=== PATIENT | male | born 1965 | race Caucasian/White ===

== ENCOUNTER 2016-05-04 11:47 | Inpatient (IN) | payer MEDICAID ==
[~2016-05-04] VITALS: Ht 170.2 cm; Wt 58.1 kg
[2016-05-04] VITALS (7 sets, daily range): BP systolic 102–142; BP diastolic 62–91
[~2016-05-04 11:47] MED LIST: ARIP15TA3 PO; MIRT15 PO; NO MEDS; TRAZ-144 PO
[2016-05-04] MEDS ORDERED: GuaiFENesin/D-METHORPHAN [SUGAR-FREE] 200-20MG/10 ML SYRUP UDCUP PO PRN (13:45)
[2016-05-04] MEDS ORDERED: CYANOCOBALAMIN 1,000 MCG/ML VIAL IM ONE (13:45)
[2016-05-04] MEDS ORDERED: LOPERAMIDE HCL 2 MG CAPSULE PO PRN (13:45)
[2016-05-04] MEDS ORDERED: HydrOXYzine PAMOATE 50 MG CAPSULE PO PRN (13:45)
[2016-05-04] MEDS ORDERED: LORazepam 2 MG TABLET PO PRN (13:45)
[2016-05-04] MEDS: MULTIVITAMINS WITH MINERALS, THERAPEUTIC TABLET PO SCH (14:29)
[2016-05-04] MEDS: THIAMINE HCL 100 MG TABLET PO SCH (16:09)
[2016-05-04] MEDS: TraZODone HCL 50 MG TABLET PO SCH (20:24)
[2016-05-04] MEDS: MIRTAZAPINE 15 MG TABLET PO SCH (20:24)
[2016-05-05] VITALS (7 sets, daily range): BP systolic 104–114; BP diastolic 60–71
[2016-05-05] MEDS ORDERED: LORazepam 2 MG TABLET PO PRN (07:00)
[2016-05-05] MEDS: ARIPiprazole 15 MG TABLET PO SCH (08:58)
[2016-05-05] MEDS: LORazepam 2 MG TABLET PO SCH ×4 (09:00→20:31)
[2016-05-05] MEDS: THIAMINE HCL 100 MG TABLET PO SCH ×2 (09:00→17:00)
[2016-05-05] MEDS: NICOTINE 21 MG/24 HOUR PATCH TD SCH (09:00)
[2016-05-05] MEDS: MULTIVITAMINS WITH MINERALS, THERAPEUTIC TABLET PO SCH (09:00)
[2016-05-05] MEDS: FOLIC ACID 1 MG TABLET PO SCH (09:00)
[2016-05-05] MEDS: TraZODone HCL 50 MG TABLET PO SCH (20:31)
[2016-05-05] MEDS: MIRTAZAPINE 15 MG TABLET PO SCH (20:31)
[2016-05-06 06:36] VITALS: BP 122/78
[2016-05-06 06:37] VITALS: BP 122/78
[2016-05-06 08:00] LABS: BASOPHILS # (AUTO) 0.04 K/uL (0.00-0.20); BASOPHILS % (AUTO) 0.5 % (0.0-2.0); EOSINOPHILS # (AUTO) 0.14 K/uL (0.00-0.70); EOSINOPHILS % (AUTO) 1.79 % (1.0-6.0); HEMATOCRIT 46.1 % (41-53); HEMOGLOBIN 15.2 g/dL (13.5-17.5); LYMPHOCYTES # (AUTO) 2.4 K/uL (1.0-4.8); LYMPHOCYTES % (AUTO) 29.4 % (22.0-44.0); MEAN CORPUSCULAR HEMOGLOBIN 30.8 pg (26.0-34.0); MEAN CORPUSCULAR HGB CONC 32.9 G/dL (31.0-37.0); MEAN CORPUSCULAR VOLUME 94 fL (80-100); MONOCYTES # (AUTO) 0.4 K/uL (0.1-1.0); MONOCYTES % (AUTO) 4.9 % (2.0-9.0); NEUTROPHILS # (AUTO) 5.1 K/uL (1.8-7.7); NEUTROPHILS % (AUTO) 63.4 % (40.0-70.0); PLATELET COUNT (AUTO) 436 K/uL (150-450); RED BLOOD CELL COUNT(AUTO) 4.92 MIL/uL (4.50-5.90); RED CELL DISTRIBUTION WIDTH 15.2 % (11.5-14.5); WHITE BLOOD COUNT (AUTO) 8.1 K/uL (4.5-11.0)
[2016-05-06 08:03] VITALS: BP 117/77
[2016-05-06 08:31] LABS: ALANINE AMINOTRANSFERASE 34 U/L (12-78); ALBUMIN 3.4 g/dL (3.4-5.0); ANION GAP 9 mmol/L (8-16); ASPARTATE AMINOTRANSFERASE 22 U/L (15-37); BILIRUBIN,TOTAL 0.3 mg/dL (0.1-1.0); CALCIUM, TOTAL 8.9 mg/dL (8.8-10.5); CARBON DIOXIDE 27 mmol/L (22-29); CHLORIDE 103 mmol/L (98-107); CHOL/HDL RATIO 4.1 (4.2-7.3); CREATININE 0.91 mg/dL (0.60-1.30); GLOMERULAR FILTR. RATE CALC > 60 mL/min (>60); POTASSIUM 4.2 mmol/L (3.5-5.1); SODIUM SERUM 139 mmol/L (136-145); THYROID STIMULATING HORMONE 2.58 uIU/mL (0.36-3.74); TOTAL PROTEIN, SERUM 7.2 g/dL (6.4-8.2); UREA NITROGEN, BLOOD 13 mg/dL (7-18)
[2016-05-06] MEDS: MULTIVITAMINS WITH MINERALS, THERAPEUTIC TABLET PO SCH (09:00)
[2016-05-06] MEDS: THIAMINE HCL 100 MG TABLET PO SCH ×2 (09:00→16:15)
[2016-05-06] MEDS: LORazepam 2 MG TABLET PO SCH ×4 (09:00→20:57)
[2016-05-06] MEDS: FOLIC ACID 1 MG TABLET PO SCH (09:00)
[2016-05-06 09:24] VITALS: BP 117/77
[2016-05-06] MEDS: ARIPiprazole 15 MG TABLET PO SCH (09:30)
[2016-05-06] MEDS: NICOTINE 21 MG/24 HOUR PATCH TD SCH (09:30)
[2016-05-06 16:00] VITALS: BP 123/77
[2016-05-06] MEDS: TraZODone HCL 50 MG TABLET PO SCH (20:57)
[2016-05-06] MEDS: MIRTAZAPINE 15 MG TABLET PO SCH (20:57)
[2016-05-07 06:46] VITALS: BP 122/67
[2016-05-07] MEDS ORDERED: LORazepam 1 MG TABLET PO PRN (07:00)
[2016-05-07 08:03] VITALS: BP 109/65
[2016-05-07] MEDS: FOLIC ACID 1 MG TABLET PO SCH (10:02)
[2016-05-07] MEDS: LORazepam 1 MG TABLET PO SCH ×4 (10:03→20:26)
[2016-05-07] MEDS: MULTIVITAMINS WITH MINERALS, THERAPEUTIC TABLET PO SCH (10:03)
[2016-05-07] MEDS: THIAMINE HCL 100 MG TABLET PO SCH ×2 (10:03→17:06)
[2016-05-07] MEDS: ARIPiprazole 15 MG TABLET PO SCH (10:03)
[2016-05-07] MEDS: NICOTINE 21 MG/24 HOUR PATCH TD SCH (10:04)
[2016-05-07 10:10] VITALS: BP 109/65
[2016-05-07 16:08] VITALS: BP 110/67
[2016-05-07] MEDS: MIRTAZAPINE 15 MG TABLET PO SCH (20:26)
[2016-05-07] MEDS: TraZODone HCL 50 MG TABLET PO SCH (20:26)
[2016-05-08 06:46] VITALS: BP 106/85
[2016-05-08] MEDS ORDERED: LORazepam 1 MG TABLET PO PRN (07:00)
[2016-05-08 08:00] VITALS: BP 126/85
[2016-05-08 08:03] VITALS: BP 126/85
[2016-05-08 09:04] LABS: CHOL/HDL RATIO 3.6 (4.2-7.3); MAGNESIUM 2.3 mg/dL (1.80-2.40); THYROID STIMULATING HORMONE 4.02 uIU/mL (0.36-3.74)
[2016-05-08 09:05] LABS: HEMOGLOBIN A1C 5.5 % (4.5-6.2)
[2016-05-08] MEDS: ARIPiprazole 15 MG TABLET PO SCH (09:14)
[2016-05-08] MEDS: MULTIVITAMINS WITH MINERALS, THERAPEUTIC TABLET PO SCH (09:14)
[2016-05-08] MEDS: FOLIC ACID 1 MG TABLET PO SCH (09:14)
[2016-05-08] MEDS: NICOTINE 21 MG/24 HOUR PATCH TD SCH (09:15)
[2016-05-08] MEDS: THIAMINE HCL 100 MG TABLET PO SCH (09:15)
[2016-05-09 12:10] LABS: HEPATITIS Bs ANTIGEN SCREEN P Negative (Negative); HEPATITIS C AB SCREEN 0.1 s/co ratio (0.0-0.9)
== END 2016-05-08 16:25 | disposition home or self-care (01) | DRG 750 ==
LOC: B3A 13:27 → EDSTATUS 13:52
DX: F25.1 Schizoaffective disorder, depressive type (principal); R45.851 Suicidal ideations; E78.5 Hyperlipidemia, unspecified; F17.200 Nicotine dependence, unspecified, uncomplicated; F12.90 Cannabis use, unspecified, uncomplicated; F10.10 Alcohol abuse, uncomplicated; Z98.890 Other specified postprocedural states; Z87.81 Personal history of (healed) traumatic fracture
CPT/HCPCS: 80074; 82306; 82607; 82746; 83036; 83735; 84439; 84443; 86592; G0480; J3420

== ENCOUNTER 2016-08-17 07:37 | Inpatient (IN) | payer MEDICAID ==
[~2016-08-17] VITALS: Ht 170.2 cm; Wt 55.3 kg
[~2016-08-17 07:37] MED LIST changes: -NO MEDS
[2016-08-17 09:35] VITALS: BP 111/75
[2016-08-17] MEDS ORDERED: ZOLPIDEM TARTRATE 10 MG TABLET PO PRN (09:45)
[2016-08-17] MEDS ORDERED: HALOPERIDOL 5 MG TABLET PO PRN (09:45)
[2016-08-17] MEDS ORDERED: LORazepam 2 MG TABLET PO PRN (09:45)
[2016-08-17 10:37] VITALS: BP 118/74
[2016-08-17] MEDS: HYDROCORTISONE 1% 30 GM OINTMENT TP SCH (16:06)
[2016-08-17] MEDS: SIMVASTATIN 20 MG TABLET PO SCH (20:53)
[2016-08-18 08:05] LABS: APPEARANCE,URINE TURBID (CLEAR); GLUCOSE, URINE (UA) NEGATIVE (NEGATIVE); KETONES,URINE 40 mg/dL (NEGATIVE); LEUKOCYTE ESTERASE ,URINE SMALL (NEGATIVE); OCCULT BLOOD,URINE NEGATIVE (NEGATIVE); PH,URINE 5.5 (5.0-8.0); PROTEIN,URINE NEGATIVE (NEGATIVE)
[2016-08-18 08:07] LABS: ADD UA MICROSCOPIC YES
[2016-08-18] MEDS: HYDROCORTISONE 1% 30 GM OINTMENT TP SCH ×2 (08:12→16:26)
[2016-08-18] MEDS: NICOTINE 21 MG/24 HOUR PATCH TD SCH (08:12)
[2016-08-18 08:16] LABS: AMORPHOUS SEDIMENT,UR Many /LPF (None Seen); RBC,URINE 0-2 /HPF (0-2); SQUAMOUS EPITHELIAL CELL,UR Rare /LPF (None Seen); WBC,URINE 0-2 /HPF (0-5)
[2016-08-18 08:32] VITALS: BP 100/61
[2016-08-18] MEDS: ARIPiprazole 15 MG TABLET PO SCH (12:26)
[2016-08-18] MEDS: MIRTAZAPINE 15 MG TABLET PO SCH (20:54)
[2016-08-18] MEDS: SIMVASTATIN 20 MG TABLET PO SCH (20:54)
[2016-08-18] MEDS: TraZODone HCL 50 MG TABLET PO SCH (20:54)
[2016-08-19 06:16] VITALS: BP 103/65
[2016-08-19 08:19] VITALS: BP 100/62
[2016-08-19 08:24] LABS: BASOPHILS % (AUTO) 0.4 % (0.0-2.0); EOSINOPHILS % (AUTO) 2.3 % (1.0-6.0); HEMOGLOBIN 15.1 g/dL (13.5-17.5); LYMPHOCYTES # (AUTO) 2.2 K/uL (1.0-4.8); MEAN CORPUSCULAR HEMOGLOBIN 30.3 pg (26.0-34.0); MEAN CORPUSCULAR HGB CONC 32.1 G/dL (31.0-37.0); MEAN CORPUSCULAR VOLUME 95 fL (80-100); MONOCYTES # (AUTO) 0.4 K/uL (0.1-1.0); NEUTROPHILS # (AUTO) 4.5 K/uL (1.8-7.7); NEUTROPHILS % (AUTO) 61.3 % (40.0-70.0); PLATELET COUNT (AUTO) 364 K/uL (150-450); RED BLOOD CELL COUNT(AUTO) 4.97 MIL/uL (4.50-5.90); RED CELL DISTRIBUTION WIDTH 14.7 % (11.5-14.5); WHITE BLOOD COUNT (AUTO) 7.4 K/uL (4.5-11.0)
[2016-08-19 08:42] LABS: ALANINE AMINOTRANSFERASE 16 U/L (12-78); ALBUMIN 3.3 g/dL (3.4-5.0); ANION GAP 12 mmol/L (8-16); ASPARTATE AMINOTRANSFERASE 18 U/L (15-37); BILIRUBIN,TOTAL 0.4 mg/dL (0.1-1.0); CALCIUM, TOTAL 8.7 mg/dL (8.8-10.5); CARBON DIOXIDE 22 mmol/L (22-29); CHLORIDE 103 mmol/L (98-107); GLOMERULAR FILTR. RATE CALC > 60 mL/min (>60); POTASSIUM 3.7 mmol/L (3.5-5.1); SODIUM SERUM 137 mmol/L (136-145); UREA NITROGEN, BLOOD 15 mg/dL (7-18)
[2016-08-19] MEDS: LEVOFLOXACIN 250 MG TABLET PO SCH (08:59)
[2016-08-19] MEDS: HYDROCORTISONE 1% 30 GM OINTMENT TP SCH ×2 (08:59→17:59)
[2016-08-19] MEDS: NICOTINE 21 MG/24 HOUR PATCH TD SCH (08:59)
[2016-08-19] MEDS: ARIPiprazole 15 MG TABLET PO SCH (08:59)
[2016-08-19 16:00] VITALS: BP 115/78
[2016-08-19] MEDS: MIRTAZAPINE 15 MG TABLET PO SCH (21:28)
[2016-08-19] MEDS: SIMVASTATIN 20 MG TABLET PO SCH (21:28)
[2016-08-19] MEDS: TraZODone HCL 50 MG TABLET PO SCH (21:28)
[2016-08-20 06:43] VITALS: BP 110/75
[2016-08-20 08:27] VITALS: BP 104/63
[2016-08-20] MEDS: ARIPiprazole 15 MG TABLET PO SCH (08:57)
[2016-08-20] MEDS: NICOTINE 21 MG/24 HOUR PATCH TD SCH (09:00)
[2016-08-20] MEDS: LEVOFLOXACIN 250 MG TABLET PO SCH ×2 (09:00→10:47)
[2016-08-20] MEDS: HYDROCORTISONE 1% 30 GM OINTMENT TP SCH ×2 (09:05→17:18)
[2016-08-20 16:18] VITALS: BP 122/70
[2016-08-20] MEDS: SIMVASTATIN 20 MG TABLET PO SCH (20:09)
[2016-08-20] MEDS: MIRTAZAPINE 15 MG TABLET PO SCH (20:09)
[2016-08-20] MEDS: TraZODone HCL 50 MG TABLET PO SCH (20:09)
[2016-08-21 06:25] VITALS: BP 100/65
[2016-08-21 08:11] VITALS: BP 128/82
[2016-08-21] MEDS: LEVOFLOXACIN 250 MG TABLET PO SCH (08:34)
[2016-08-21] MEDS: ARIPiprazole 15 MG TABLET PO SCH (08:34)
[2016-08-21] MEDS: NICOTINE 21 MG/24 HOUR PATCH TD SCH (08:34)
[2016-08-21] MEDS: HYDROCORTISONE 1% 30 GM OINTMENT TP SCH (09:29)
[2016-08-21] MEDS ORDERED: SIMV-260 PO (09:54)
[2016-08-21] MEDS ORDERED: LEVO250 PO (10:22)
== END 2016-08-21 13:15 | disposition home or self-care (01) | DRG 750 ==
LOC: B2S 09:45
PROVIDERS: ADMIT Psychiatry & Neurology Child & Adolescent Psychiatry; ATTEND Psychiatry & Neurology Child & Adolescent Psychiatry
DX: F25.0 Schizoaffective disorder, bipolar type (principal); Z91.14 Patient's other noncompliance with medication regimen; E78.5 Hyperlipidemia, unspecified; F19.90 Other psychoactive substance use, unspecified, uncomplicated; Z72.0 Tobacco use
CPT/HCPCS: 87086

== ENCOUNTER 2016-10-05 01:03 | Emergency (ER) | payer MEDICAID, OTHER ==
[~2016-10-05] VITALS: Ht 170.2 cm; Wt 59.1 kg
[~2016-10-05 01:03] MED LIST changes: +LEVO250 PO; +SIMV-260 PO
[2016-10-05 01:07] VITALS: BP 122/91
[2016-10-05 01:29] LABS: BASOPHILS % (AUTO) 0.3 % (0.0-2.0); EOSINOPHILS % (AUTO) 0.4 % (1.0-6.0); HEMOGLOBIN 15.3 g/dL (13.5-17.5); LYMPHOCYTES # (AUTO) 1.4 K/uL (1.0-4.8); LYMPHOCYTES % (AUTO) 16.1 % (22.0-44.0); MEAN CORPUSCULAR HEMOGLOBIN 31.5 pg (26.0-34.0); MEAN CORPUSCULAR HGB CONC 34.1 G/dL (31.0-37.0); MEAN CORPUSCULAR VOLUME 92 fL (80-100); MONOCYTES # (AUTO) 0.3 K/uL (0.1-1.0); MONOCYTES % (AUTO) 3.9 % (2.0-9.0); NEUTROPHILS # (AUTO) 6.9 K/uL (1.8-7.7); NEUTROPHILS % (AUTO) 79.3 % (40.0-70.0); PLATELET COUNT (AUTO) 343 K/uL (150-450); RED BLOOD CELL COUNT(AUTO) 4.87 MIL/uL (4.50-5.90); RED CELL DISTRIBUTION WIDTH 15.3 % (11.5-14.5); WHITE BLOOD COUNT (AUTO) 8.7 K/uL (4.5-11.0)
[2016-10-05 01:43] LABS: ANION GAP 9 mmol/L (8-16); CALCIUM, TOTAL 9.4 mg/dL (8.8-10.5); CARBON DIOXIDE 27 mmol/L (22-29); CHLORIDE 106 mmol/L (98-107); CREATININE 1.15 mg/dL (0.60-1.30); GLOMERULAR FILTR. RATE CALC > 60 mL/min (>60); POTASSIUM 3.9 mmol/L (3.5-5.1); SODIUM SERUM 142 mmol/L (136-145); UREA NITROGEN, BLOOD 9 mg/dL (7-18)
[2016-10-05 01:48] LABS: ALANINE AMINOTRANSFERASE 23 U/L (12-78); ALBUMIN 3.8 g/dL (3.4-5.0); ASPARTATE AMINOTRANSFERASE 19 U/L (15-37); BILIRUBIN,TOTAL 0.3 mg/dL (0.1-1.0); TOTAL PROTEIN, SERUM 7.6 g/dL (6.4-8.2)
== END 2016-10-05 02:01 | disposition left against medical advice (07) ==
LOC: EMS 01:04
DX: R44.0 Auditory hallucinations (principal); R44.1 Visual hallucinations; F20.9 Schizophrenia, unspecified; F17.210 Nicotine dependence, cigarettes, uncomplicated; F19.90 Other psychoactive substance use, unspecified, uncomplicated
CPT/HCPCS: 36415; 80053; 85025; G0480

== ENCOUNTER 2016-10-24 18:01 | Inpatient (IN) | payer MEDICAID ==
[~2016-10-24] VITALS: Ht 170.2 cm; Wt 57.6 kg
[~2016-10-24 18:01] MED LIST changes: -LEVO250 PO; -MIRT15 PO; +MIRT30 PO; +PRAZ1 PO; -TRAZ-144 PO
[2016-10-24] MEDS ORDERED: ZOLPIDEM TARTRATE 10 MG TABLET PO PRN (18:45)
[2016-10-24] MEDS ORDERED: LORazepam 2 MG TABLET PO PRN (18:45)
[2016-10-24] MEDS ORDERED: HALOPERIDOL 5 MG TABLET PO PRN (18:45)
[2016-10-24 18:47] VITALS: BP 123/88
[2016-10-24] MEDS: ARIPiprazole 15 MG TABLET PO SCH (19:40)
[2016-10-24] MEDS ORDERED: PRAZOSIN HCL 1 MG CAPSULE PO SCH (21:00)
[2016-10-24] MEDS ORDERED: SIMVASTATIN 20 MG TABLET PO SCH (21:00)
[2016-10-24] MEDS ORDERED: MIRTAZAPINE 30 MG TABLET PO SCH (21:00)
[2016-10-25 06:45] VITALS: BP 127/90
[2016-10-25 08:07] VITALS: BP 121/90
[2016-10-25] MEDS: ARIPiprazole 15 MG TABLET PO SCH (08:28)
[2016-10-25] MEDS ORDERED: NICOTINE 21 MG/24 HOUR PATCH TD SCH (09:00)
[2016-10-25] MEDS ORDERED: ASPIRIN 325 MG TABLET PO ONE (13:00)
[2016-10-25 14:57] LABS: GLUCOSE,POINT OF CARE 105 MG/DL (70-110)
== END 2016-10-25 18:46 | disposition short-term general hospital (02) | DRG 750 ==
LOC: B2S 18:50
DX: F25.1 Schizoaffective disorder, depressive type (principal); R45.851 Suicidal ideations; Z72.0 Tobacco use; F15.90 Other stimulant use, unspecified, uncomplicated; E03.9 Hypothyroidism, unspecified; E78.5 Hyperlipidemia, unspecified
CPT/HCPCS: 82962

== ENCOUNTER 2019-07-14 15:57 | Inpatient (IN) | payer MEDICAID, OTHER ==
[~2019-07-14] VITALS: Ht 170.2 cm; Wt 54.5 kg
[2019-07-14 17:27] LABS: BASOPHILS % (AUTO) 0.3 % (0.0-2.0); EOSINOPHILS % (AUTO) 0.7 % (1.0-6.0); HEMATOCRIT 42.5 % (41-53); HEMOGLOBIN 14.1 g/dL (13.5-17.5); LYMPHOCYTES # (AUTO) 2.5 K/uL (1.0-4.8); MEAN CORPUSCULAR HEMOGLOBIN 30.7 pg (26.0-34.0); MEAN CORPUSCULAR HGB CONC 33.2 G/dL (31.0-37.0); MEAN CORPUSCULAR VOLUME 93 fL (80-100); MONOCYTES # (AUTO) 0.5 K/uL (0.1-1.0); MONOCYTES % (AUTO) 6.9 % (2.0-9.0); NEUTROPHILS # (AUTO) 4.6 K/uL (1.8-7.7); NEUTROPHILS % (AUTO) 60.1 % (40.0-70.0); PLATELET COUNT (AUTO) 314 K/uL (150-450); RED BLOOD CELL COUNT(AUTO) 4.59 MIL/uL (4.50-5.90); RED CELL DISTRIBUTION WIDTH 15.1 % (11.5-14.5)
[2019-07-14 17:39] LABS: ANION GAP 15 mmol/L (8-16); CALCIUM, TOTAL 9.3 mg/dL (8.8-10.5); CARBON DIOXIDE 23 mmol/L (22-29); CHLORIDE 103 mmol/L (98-107); CREATININE 0.96 mg/dL (0.60-1.30); GLOMERULAR FILTR. RATE CALC > 60 mL/min (>60); GLUCOSE,RANDOM 95 mg/dL (70-110); POTASSIUM 3.1 mmol/L (3.5-5.1); SODIUM SERUM 141 mmol/L (136-145); UREA NITROGEN, BLOOD 17 mg/dL (7-18)
[2019-07-14 17:45] LABS: ALANINE AMINOTRANSFERASE 25 U/L (12-78); ALBUMIN 3.9 g/dL (3.4-5.0); ALKALINE PHOSPHATASE 168 U/L (46-116); ASPARTATE AMINOTRANSFERASE 28 U/L (15-37); BILIRUBIN,TOTAL 1.3 mg/dL (0.1-1.0); TOTAL PROTEIN, SERUM 7.6 g/dL (6.4-8.2)
[2019-07-14] MEDS ORDERED: ARIPiprazole 15 MG TABLET PO ONE (17:45)
[2019-07-14] MEDS ORDERED: LORazepam 2 MG TABLET PO ONE (17:45)
[2019-07-14] MEDS ORDERED: ZOLPIDEM TARTRATE 10 MG TABLET PO PRN (18:00)
[2019-07-14] MEDS ORDERED: LORazepam 2 MG TABLET PO PRN (18:00)
[2019-07-14] MEDS ORDERED: HALOPERIDOL 5 MG TABLET PO PRN (18:00)
[2019-07-14] MEDS ORDERED: POTASSIUM CHLORIDE 10% 40 MEQ/30 ML LIQUID UDCUP PO ONE (18:15)
[2019-07-14 20:55] VITALS: BP 134/93
[2019-07-15] VITALS (7 sets, daily range): BP systolic 95–135; BP diastolic 62–75
[2019-07-15] MEDS ORDERED: LOPERAMIDE HCL 2 MG CAPSULE PO PRN (09:15)
[2019-07-15] MEDS ORDERED: ONDANSETRON HCL 4 MG TABLET PO PRN (09:15)
[2019-07-15] MEDS ORDERED: MAG HYDROX/AL HYDROX/SIMETH ES 30 ML SUSPENSION UDCUP PO PRN (09:15)
[2019-07-15] MEDS ORDERED: GuaiFENesin/D-METHORPHAN [SUGAR-FREE] 200-20MG/10 ML SYRUP UDCUP PO PRN (09:15)
[2019-07-15] MEDS ORDERED: ALBUTEROL SULFATE HFA 90 MCG/PUFF 8 GM INHALER IH PRN (09:15)
[2019-07-15] MEDS ORDERED: MAGNESIUM HYDROXIDE SUSPENSION 30 ML UDCUP PO PRN (09:15)
[2019-07-15] MEDS ORDERED: DOCUSATE SODIUM 100 MG CAPSULE PO PRN (09:15)
[2019-07-15] MEDS ORDERED: IBUPROFEN 400 MG TABLET PO PRN (09:15)
[2019-07-15] MEDS ORDERED: ACETAMINOPHEN 325 MG TABLET PO PRN (09:15)
[2019-07-15] MEDS ORDERED: CloNIDine HCL 0.1 MG TABLET PO PRN (09:15)
[2019-07-15] MEDS ORDERED: PETROLATUM,WHITE 28 GM JELLY TP PRN (09:15)
[2019-07-15] MEDS ORDERED: NICOTINE 14 MG/24 HOUR PATCH TD PRN (09:15)
[2019-07-15] MEDS: ARIPiprazole 10 MG TABLET PO SCH (17:26)
[2019-07-15] MEDS ORDERED: POTASSIUM CHLORIDE 10% 40 MEQ/30 ML LIQUID UDCUP PO ONE (17:30)
[2019-07-16] VITALS (8 sets, daily range): BP systolic 109–125; BP diastolic 65–86
[2019-07-16] MEDS: MULTIVITAMINS WITH MINERALS, THERAPEUTIC TABLET PO SCH (08:40)
[2019-07-16] MEDS: THIAMINE HCL 100 MG TABLET PO SCH (08:40)
[2019-07-16] MEDS: FOLIC ACID 1 MG TABLET PO SCH (08:40)
[2019-07-16] MEDS: ARIPiprazole 10 MG TABLET PO SCH (08:40)
[2019-07-17 00:44] VITALS: BP 106/66
[2019-07-17 08:30] VITALS: BP 107/86
[2019-07-17] MEDS: ARIPiprazole 10 MG TABLET PO SCH (08:38)
[2019-07-17] MEDS: MULTIVITAMINS WITH MINERALS, THERAPEUTIC TABLET PO SCH (08:43)
[2019-07-17] MEDS: THIAMINE HCL 100 MG TABLET PO SCH (08:43)
[2019-07-17] MEDS: FOLIC ACID 1 MG TABLET PO SCH (08:43)
[2019-07-17 09:36] LABS: PHOSPHORUS 2.4 mg/dL (2.5-4.9); POTASSIUM 4.2 mmol/L (3.5-5.1)
[2019-07-17 09:45] VITALS: BP 107/86
[2019-07-17 17:00] VITALS: BP 102/73
[2019-07-17] MEDS: SODIUM,POTASSIUM PHOSPHATES POWDER PACKET PO SCH (20:59)
[2019-07-18 06:30] VITALS: BP 115/80
[2019-07-18] MEDS: THIAMINE HCL 100 MG TABLET PO SCH (09:00)
[2019-07-18] MEDS: MULTIVITAMINS WITH MINERALS, THERAPEUTIC TABLET PO SCH (09:00)
[2019-07-18] MEDS: SODIUM,POTASSIUM PHOSPHATES POWDER PACKET PO SCH (09:00)
[2019-07-18] MEDS: FOLIC ACID 1 MG TABLET PO SCH (09:00)
[2019-07-18] MEDS: ARIPiprazole 10 MG TABLET PO SCH (09:05)
[2019-07-18 09:51] VITALS: BP 105/93
[2019-07-18 14:35] VITALS: BP 107/72
[2019-07-18 16:41] VITALS: BP 108/66
[2019-07-18 18:19] VITALS: BP 108/66
[2019-07-19 00:46] VITALS: BP 106/78
[2019-07-19 00:48] VITALS: BP 106/78
[2019-07-19 09:31] VITALS: BP 119/81
[2019-07-19] MEDS: MULTIVITAMINS WITH MINERALS, THERAPEUTIC TABLET PO SCH (10:47)
[2019-07-19] MEDS: ARIPiprazole 10 MG TABLET PO SCH (10:47)
[2019-07-19] MEDS: FOLIC ACID 1 MG TABLET PO SCH (10:47)
[2019-07-19] MEDS: THIAMINE HCL 100 MG TABLET PO SCH (10:47)
[2019-07-19 12:14] VITALS: BP 108/73
[2019-07-19 17:00] VITALS: BP 116/73
[2019-07-19 21:34] VITALS: BP 116/73
[2019-07-20 07:04] VITALS: BP 121/64
[2019-07-20] MEDS: FOLIC ACID 1 MG TABLET PO SCH (08:30)
[2019-07-20] MEDS: ARIPiprazole 10 MG TABLET PO SCH (08:30)
[2019-07-20] MEDS: THIAMINE HCL 100 MG TABLET PO SCH (08:30)
[2019-07-20] MEDS: MULTIVITAMINS WITH MINERALS, THERAPEUTIC TABLET PO SCH (08:30)
[2019-07-20 09:09] VITALS: BP 122/95
[2019-07-20 18:17] VITALS: BP 111/66
[2019-07-20 18:19] VITALS: BP 111/66
[2019-07-21 06:12] VITALS: BP 105/70
[2019-07-21 08:00] VITALS: BP 107/87
[2019-07-21] MEDS: THIAMINE HCL 100 MG TABLET PO SCH (09:15)
[2019-07-21] MEDS: FOLIC ACID 1 MG TABLET PO SCH (09:16)
[2019-07-21] MEDS: MULTIVITAMINS WITH MINERALS, THERAPEUTIC TABLET PO SCH (09:16)
[2019-07-21] MEDS: ARIPiprazole 10 MG TABLET PO SCH (09:16)
[2019-07-21 10:18] VITALS: BP 107/87
[2019-07-21] MEDS ORDERED: ARIP10TA8 PO (12:50)
== END 2019-07-21 13:40 | disposition home or self-care (01) | DRG 885 ==
LOC: EMS 15:58 → 3EI 19:00
PROVIDERS: ADMIT Psychiatry & Neurology Child & Adolescent Psychiatry; ATTEND Psychiatry & Neurology Child & Adolescent Psychiatry
DX: F25.9 Schizoaffective disorder, unspecified (principal); E78.5 Hyperlipidemia, unspecified; E83.39 Other disorders of phosphorus metabolism; E87.6 Hypokalemia; F10.10 Alcohol abuse, uncomplicated; G89.4 Chronic pain syndrome; K70.30 Alcoholic cirrhosis of liver without ascites; M19.90 Unspecified osteoarthritis, unspecified site; Z59.0 Homelessness; Z87.891 Personal history of nicotine dependence
CPT/HCPCS: 84100; G0480